=== PATIENT | female | born 1955 | race Caucasian/White ===

== ENCOUNTER → 2018-01-27 | Outpatient (CLI) | payer BC ==
--- NOTE | 2018-01-27 16:29 | XR ---
EXAMINATION TYPE: XR chest 2V DATE OF EXAM: 01/27/2018 COMPARISON: NONE HISTORY: Increasing shortness of breath. History of asthma and congestive heart failure TECHNIQUE: Frontal and lateral views of the chest are obtained. FINDINGS: There is no focal air space opacity, pleural effusion, or pneumothorax seen. Minimal perib ronchial cuffing is seen centrally most exaggerated on the lateral image. The cardiac silhouette siz e is upper limits of normal. There is tortuosity of the descending thoracic aorta. The osseous stru ctures are intact. IMPRESSION: No focal consolidation to suggest pneumonia. Minimal peribronchial cuffing which could b e seen in bronchitis or reactive airway disease given the patient's history of asthma.
== END | disposition home or self-care (01) ==
LOC: RADXRYALE 16:13
PROVIDERS: ATTEND Pediatrics Pediatric Allergy/Immunology
DX: R91.8 Other nonspecific abnormal finding of lung field (principal); I50.9 Heart failure, unspecified; J45.998 Other asthma
CPT/HCPCS: 71046